=== PATIENT | male | born 1965 | race African-American/Black ===

== ENCOUNTER 2021-01-23 11:52 | Day surgery (SDC) | payer OTHER ==
[2021-01-23] MEDS ORDERED: PROPOFOL 1% 20 ML VIAL IVP ONE (11:53)
[2021-01-23] MEDS ORDERED: SODIUM CHLORIDE 0.9% 1,000 ML IV ONE (12:30)
[2021-01-23 12:54] LABS: COVID AG,FIA SOURCE NASOPHARYNGEAL
[2021-01-23] MEDS ORDERED: SODIUM CHLORIDE 0.9% 1,000 ML ONE (13:13)
[2021-01-23 13:47] LABS: GLUCOMETER DEV NAME(LOC) SDS.; GLUCOSE,POINT OF CARE 108 MG/DL (70-110)
== END 2021-01-23 16:30 | disposition home or self-care (01) ==
LOC: SURGERY 11:52
PROVIDERS: ATTEND Internal Medicine Gastroenterology
DX: Z12.11 Encounter for screening for malignant neoplasm of colon (principal); I10 Essential (primary) hypertension; E66.01 Morbid (severe) obesity due to excess calories; J45.909 Unspecified asthma, uncomplicated; F17.210 Nicotine dependence, cigarettes, uncomplicated; E11.9 Type 2 diabetes mellitus without complications; Z79.899 Other long term (current) drug therapy; Z98.890 Other specified postprocedural states
CPT/HCPCS: 45378; 82962; 87426; C9803; J2704; J7030